=== PATIENT | female | born 1955 | race Hispanic/Latino ===

== ENCOUNTER 2017-07-25 22:01 | Emergency (ER) | payer MEDICARE, MEDICAID ==
[2017-07-25] MEDS ORDERED: predniSONE 20 MG TAB ONE (22:51)
== END 2017-07-25 23:15 | disposition home or self-care (01) ==
LOC: ERS 22:01
DX: G51.0 Bell's palsy (principal); I10 Essential (primary) hypertension; E11.9 Type 2 diabetes mellitus without complications; Z79.84 Long term (current) use of oral hypoglycemic drugs; Z79.899 Other long term (current) drug therapy
CPT/HCPCS: 99283; J7506